=== PATIENT | male | born 1970 | race Caucasian/White ===

== ENCOUNTER 2016-11-17 17:06 | Emergency (ER) | payer BC ==
[2016-11-17] MEDS ORDERED: Sodium Chloride 0.9% 5 ML Syringe FLUSH PRN (17:17)
[2016-11-17] MEDS ORDERED: Adenosine 6 MG/2 ML SDV IVPUSH ONE ×2 (17:18→17:48)
[2016-11-17] MEDS ORDERED: Adenosine 12 MG/4 ML SDV IVPUSH ONE (17:24)
[2016-11-17] MEDS ORDERED: Aspirin 81 MG Tab.Chew PO ONE (17:48)
[2016-11-17] MEDS: Sodium Chloride 0.9% 20 ML SDV FLUSH SCH ×2 (17:55→17:56)
[2016-11-17 17:56] LABS: CHLORIDE,CL 102 mmol/L (98-115); SODIUM,NA 138 mmol/L (136-145)
--- NOTE | 2016-11-17 17:57 | EDM.PDOC ---
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 CP DESCRIBED DULL / ACHY AND MID STERNAL. BROUGHT HIM TO ER. FOUND TO BE TACHYCARDIC WITH RATE OF 220. HAD SIMILAR INCIDENT 10 YEARS AGO BUT NO DOCUMENTATION AVAILABLE. DENIES DRUG USE, ENERGY DRINKS OR EXCESSIVE CAFFEINE, FEVER, TRAUMA, ABD PAIN, OR N/V/D Onset: Today Duration: Minutes: Location: Reports: Chest Quality: Reports: Ache Severity: Mild Improves with: Reports: None Worsens with: Reports: Breathing Associated Symptoms: Reports: Chest Pain, Diaphoresis, Shortness of Breath - Related Data Allergies Allergy/AdvReac Type Severity Reaction Status Date / Time aspirin Allergy Cannot Verified 11/17/16 17:33 Remember Penicillins Allergy Cannot Verified 11/17/16 17:33 Remember Home Meds: Home Meds ALPRAZolam [Alprazolam] 0.25 mg PO Q6H PRN 11/17/16 [History] Albuterol [Ventolin HFA] 2 puff INH Q2H PRN 11/17/16 [History] Lisinopril [Prinivil] 5 mg PO DAILY 11/17/16 [History] Montelukast Sodium [Singulair] 10 mg PO DAILY 11/17/16 [History] buPROPion HCl [Wellbutrin Xl] 300 mg PO DAILY 11/17/16 [History] Social & Family History - Tobacco Use Smoking Status *Q: Current Every Day Smoker Years of Tobacco use: 25 Packs/Tins Daily: 0.2 Used Tobacco, but Quit: No Second Hand Smoke Exposure: No - Caffeine Use Caffeine Use: Reports: Coffee, Soda - Alcohol Use Days Per Week of Alcohol Use: 2 Number of Drinks Per Day: 8 Total Drinks Per Week: 16 - Recreational Drug Use Recreational Drug Use: Yes Recreational Drug Type: Reports: Marijuana/Hashish, Methamphetamine ED ROS GENERAL - Review of Systems Review Of Systems: ROS reveals no pertinent complaints other than HPI. Constitutional: Reports: Weakness HEENT: Reports: No Symptoms Respiratory: Reports: Shortness of Breath Cardiovascular: Reports: Chest Pain, Palpitations Endocrine: Reports: No Symptoms GI/Abdominal: Reports: No Symptoms : Reports: No Symptoms Musculoskeletal: Reports: No Symptoms Skin: Reports: No Symptoms Neurological: Reports: No Symptoms Psychiatric: Reports: No Symptoms Hematologic/Lymphatic: Reports: No Symptoms Immunologic: Reports: No Symptoms ED EXAM, GENERAL - Physical Exam Exam: See Below Exam Limited By: No Limitations General Appearance: Alert, WD/WN, Mild Distress Eye Exam: Bilateral Eye: Normal Inspection Nose: Normal Inspection, Normal Mucosa, No Blood Throat/Mouth: Normal Inspection, Normal Oropharynx, No Airway Compromise Head: Atraumatic, Normocephalic Neck: Normal Inspection, Supple, Non-Tender Respiratory/Chest: No Respiratory Distress, Lungs Clear, Normal Breath Sounds, No Accessory Muscle Use Cardiovascular: No Murmur, Tachycardia Peripheral Pulses: 2+: Carotid (L), Carotid (R), Radial (L), Radial (R), Femoral (L), Femoral (R) GI/Abdominal: Normal Bowel Sounds, Soft, Non-Tender, No Organomegaly, No Distention, No Abnormal Bruit, No Mass Back Exam: Normal Inspection. No: CVA Tenderness (L), CVA Tenderness (R) Extremities: Normal Inspection, Non-Tender, No Pedal Edema Neurological: Alert, Oriented, CN II-XII Intact, Normal Cognition Psychiatric: Normal Affect, Normal Mood Skin Exam: Warm, Dry, Intact, Normal Color, No Rash Lymphatic: No Adenopathy EKG INTERPRETATION EKG Date: 11/17/16 Time: 17:05 Rhythm: Other (TACHYCARDIA) Rate (Beats/Min): 220 QRS: Wide Course - Vital Signs Last Recorded V/S: Last Vital Signs Temp 98.2 F 11/17/16 17:16 Pulse 219 H 11/17/16 17:16 Resp 9 L 11/17/16 17:16 BP 156/57 H 11/17/16 17:16 Pulse Ox 98 11/17/16 17:43 - Orders/Labs/Meds Orders: Active Orders 24 hr Category Date Time Status Cardiac Monitoring [RC] . DIRECTED Care 11/17/16 17:17 Ordered EKG Documentation Completion [RC] ASDIRECTED Care 11/17/16 17:17 Ordered EKG Documentation Completion [RC] ASDIRECTED Care 11/17/16 17:49 Active Oxygen Therapy [RC] PRN Care 11/17/16 17:17 Ordered Peripheral IV Care [RC] . DIRECTED Care 11/17/16 17:17 Ordered Pulse Oximetry [RC] CONTINUOUS Care 11/17/16 17:17 Ordered Chest 1V Frontal [CR] Stat Exams 11/17/16 17:17 Ordered COMPREHENSIVE METABOLIC PN,CMP [CHEM] Stat Lab 11/17/16 17:17 Ordered DRUG SCREEN, URINE [URCHEM] Stat Lab 11/17/16 17:17 Uncollected MAGNESIUM [CHEM] Stat Lab 11/17/16 17:17 Ordered TROPONIN I [CHEM] Stat Lab 11/17/16 17:17 Ordered Sodium Chloride 0.9% [Normal Saline] Med 11/17/16 18:00 Active 20 ml FLUSH ASDIRECTED Sodium Chloride 0.9% [Syrex Flush] Med 11/17/16 17:17 Ordered 5 ml FLUSH Q8HR PRN Peripheral IV Insertion Adult [OM.PC] Stat Oth 11/17/16 17:17 Ordered Saline Lock Insert [OM.PC] Stat Oth 11/17/16 17:17 Ordered EKG 12 Lead [EK] Routine Ther 11/17/16 17:48 Ordered Medication Orders Sodium Chloride (Syrex Flush) 5 ml FLUSH Q8HR PRN PRN Reason: Keep Vein Open Sodium Chloride (Normal Saline) 20 ml FLUSH ASDIRECTED [facility] Labs: Laboratory Tests 11/17/16 11/17/16 Range/Units 17:10 17:10 WBC 10.6 H (5.0-10.0) 10^3/uL RBC 5.36 (4.50-6.00) 10^6/uL Hgb 14.3 (13.0-17.0) g/dL Hct 42.0 (40.0-52.0) % MCV 78.2 L (82.0-92.0) fL MCH 26.6 L (27.0-31.0) pg MCHC 34.0 (32.0-36.0) g/dL RDW 13.7 (11.5-14.5) % Plt Count 261 (150-300) 10^3/uL MPV 7.3 L (7.4-10.4) fL Neut % (Auto) 54.9 (50.0-70.0) % Lymph % (Auto) 29.0 (20.0-40.0) % [place]ette % (Auto) 11.7 H (2.0-8.0) % Eos % (Auto) 3.6 H (1.0-3.0) % Baso % (Auto) 0.8 (0.0-1.0) % Neut # (Auto) 5.8 (2.5-7.0) 10^3/uL Lymph # (Auto) 3.1 (1.0-4.0) 10^3/uL [place]ette # (Auto) 1.2 H (0.1-0.8) 10^3/uL Eos # (Auto) 0.4 H (0.1-0.3) 10^3/uL Baso # (Auto) 0.1 (0.0-0.1) 10^3/uL PT 9.7 (8.9-11.4) SEC INR 0.9 (0.9-1.1) APTT 24.3 (20.8-31.2) SEC Meds: Medications Generic Name Dose Route Start Last Admin Trade Name Freq PRN Reason Stop Dose Admin Sodium Chloride 5 ml 11/17/16 17:17 Syrex Flush FLUSH Q8HR PRN Keep Vein Open Sodium Chloride 20 ml 11/17/16 18:00 Normal Saline FLUSH ASDIRECTED MONSE Discontinued Medications Generic Name Dose Route Start Last Admin Trade Name Freq PRN Reason Stop Dose Admin Adenosine 6 mg 11/17/16 17:18 Adenocard IVPUSH 11/17/16 17:19 NOW ONE Adenosine 12 mg 11/17/16 17:48 Adenocard IVPUSH 11/17/16 17:49 NOW ONE Aspirin 324 mg 11/17/16 17:48 Aspirin PO 11/17/16 17:49 ONETIME ONE - Re-Assessments/Exams Free Text/Narrative Re-Assessment/Exam: 11/17/16 18:01 INITIAL EKG SHOWED WIDE COMPLEX QRS. CAROTID MASSAGE INITIATED BUT UNSUCCESSFUL. PT GIVEN 6 MG ADENOSINE THRU IV BUT NO CHANGE IN HR OR BP. 12 MG ADENOSINE THEN GIVEN IV AND HR DECREASED TO 109 AND BP REMAINED SAME. PT FELT MUCH BETTER. CHEST PAIN AND SOB RESOLVED. VSS, NONTOXIC AND AFEBRILE. DISCUSSED CASE WITH DR ZIMMER AT [facility]. WILL ACCEPT TRANSFER VIA EMS Departure - Departure Time of Disposition: 18:08 Disposition: DC/Tfer to Acute Hospital 02 Reason for Transfer *Q: Primary PCI Indicated Condition: Fair Clinical Impression: Chest pain Qualifiers: Chest pain type: unspecified Qualified Code(s): R07.9 - Chest pain, unspecified Referrals: Laura Olea, [facility] [Primary Care Provider] - Forms: ED Department Discharge, Interfacility Transfer [facility] - My Orders Last 24 Hours: My Active Orders 11/17/16 17:17 Cardiac Monitoring [RC] . DIRECTED EKG Documentation Completion [RC] ASDIRECTED Oxygen Therapy [RC] PRN Peripheral IV Care [RC] . DIRECTED Pulse Oximetry [RC] CONTINUOUS Chest 1V Frontal [CR] Stat COMPREHENSIVE METABOLIC PN,CMP [CHEM] Stat DRUG SCREEN, URINE [URCHEM] Stat MAGNESIUM [CHEM] Stat TROPONIN I [CHEM] Stat Sodium Chloride 0.9% [Syrex Flush] 5 ml FLUSH Q8HR PRN Peripheral IV Insertion Adult [OM.PC] Stat Saline Lock Insert [OM.PC] Stat 11/17/16 17:48 EKG 12 Lead [EK] Routine 11/17/16 17:49 EKG Documentation Completion [RC] ASDIRECTED 11/17/16 18:00 Sodium Chloride 0.9% [Normal Saline] 20 ml FLUSH ASDIRECTED - Assessment/Plan Last 24 Hours: My Active Orders 11/17/16 17:17 Cardiac Monitoring [RC] . DIRECTED EKG Documentation Completion [RC] ASDIRECTED Oxygen Therapy [RC] PRN Peripheral IV Care [RC] . DIRECTED Pulse Oximetry [RC] CONTINUOUS Chest 1V Frontal [CR] Stat COMPREHENSIVE METABOLIC PN,CMP [CHEM] Stat DRUG SCREEN, URINE [URCHEM] Stat MAGNESIUM [CHEM] Stat TROPONIN I [CHEM] Stat Sodium Chloride 0.9% [Syrex Flush] 5 ml FLUSH Q8HR PRN Peripheral IV Insertion Adult [OM.PC] Stat Saline Lock Insert [OM.PC] Stat 11/17/16 17:48 EKG 12 Lead [EK] Routine 11/17/16 17:49 EKG Documentation Completion [RC] ASDIRECTED 11/17/16 18:00 Sodium Chloride 0.9% [Normal Saline] 20 ml FLUSH ASDIRECTED Assessment:: CHEST PAIN Plan: TRANSFER TO [facility]
[2016-11-17 18:50] VITALS: BP 149/83
== END 2016-11-17 18:56 ==
LOC: KA.ED 17:06
DX: R07.9 Chest pain, unspecified (principal); F17.210 Nicotine dependence, cigarettes, uncomplicated; Z79.899 Other long term (current) drug therapy; Z88.0 Allergy status to penicillin; Z88.8 Allergy status to other drugs, medicaments and biological substances
CPT/HCPCS: 80053; 83735; 84484; 85025; 85610; 85730; 93005; 96374; 99285; A9270; J0153